=== PATIENT | female | born 1985 | race Caucasian/White ===

== ENCOUNTER 2018-05-26 12:24 | Emergency (ER) | payer OTHER ==
[~2018-05-26] VITALS: Ht 154.9 cm; Wt 101.2 kg
[2018-05-26 12:28] VITALS: BP 160/66
--- NOTE | 2018-05-26 12:50 | NUR ---
32 yo f bib family w/ c/o "laryngitis" x 1 week. Went to urgent care about 6 days ago and given 5 day regimen of prednisone. Pt reports thick green/yellow drainage from nose, and "coughing it out". Denies n/v/d/fever. Presents with dry cough at this time. Pt reports a headache; pressure 5/10 hx asthma rx prednisone and mucinex, inhaler, claritin
--- NOTE | 2018-05-26 13:38 | NUR ---
Note nicoleone in EDM - 05/26/18 at [address] HUGGINS MADE AWARE OF PATIENTS BP AT THIS TIME. NO SIGNS OF STROKE AT THIS TIME. PT A&Ox4. WILL FOLLOW UP WITH MD GONZALEZ.
[2018-05-26 14:01] VITALS: BP 129/79
--- NOTE | 2018-05-26 14:02 | NUR ---
Patient discharged with v/s stable. Written and verbal after care instructions given and explained. Patient alert, oriented and verbalized understanding of instructions. Ambulatory with steady gait. All questions addressed prior to discharge. ID band removed. Patient advised to follow up with PMD. Rx of SUDAFED, MOTRIN, PREDNISONE given. Patient educated on indication of medication including possible reaction and side effects. Opportunity to ask questions provided and answered.
== END 2018-05-26 14:02 | disposition home or self-care (01) ==
LOC: MED 12:24
DX: J02.9 Acute pharyngitis, unspecified (principal); J45.909 Unspecified asthma, uncomplicated; Z88.8 Allergy status to other drugs, medicaments and biological substances
CPT/HCPCS: 81002; 81025; 99283